=== PATIENT | male | born 1975 | race Caucasian/White ===

== ENCOUNTER 2021-03-09 11:29 | Emergency (ER) | payer MEDICAID ==
[~2021-03-09] VITALS: Ht 157.5 cm; Wt 72.0 kg
[2021-03-09 13:31] LABS: BASOPHILS % 0.8 % (0.0-2.0); EOSINOPHILS % 8.2 % (0.0-5.0); HEMATOCRIT. 45.9 % (42.0-52.0); HEMOGLOBIN. 15.1 g/dL (14.0-18.0); LYMPHOCYTES % 28.4 % (20.0-50.0); MEAN CORPUSCULAR HEMOGLOBIN 29.3 pg (28.0-32.0); MEAN PLATELET VOLUME 7.9 fl (7.4-10.4); MONOCYTES % 6.1 % (2.0-8.0); NEUTROPHILS % 56.5 % (40.0-76.0); PLATELET 361 x1000/uL (130-400); RED BLOOD CELL COUNT 5.16 mill/uL (4.7-6.1); RED CELL DISTRIBUTION WIDTH 13.2 % (11.6-14.6)
[2021-03-09 13:35] LABS: CHLORIDE 108 mEq/L (98-107)
[2021-03-09] MEDS ORDERED: ONDANSETRON HCL 4MG/2ML INJ IV ONE (16:30)
[2021-03-09] MEDS ORDERED: SODIUM CHLORIDE 0.9% 1,000 ML IV ONE (16:30)
[2021-03-09 17:51] VITALS: BP 138/69
== END 2021-03-09 17:51 | disposition home or self-care (01) ==
LOC: ER 11:29
DX: K92.1 Melena (principal); Z90.49 Acquired absence of other specified parts of digestive tract
CPT/HCPCS: 36415; 80053; 82270; 85025; 99283; J7030